=== PATIENT | male | born 1990 | race Caucasian/White ===

== ENCOUNTER 2017-09-13 03:48 | Emergency (ER) | payer SELFPAY ==
[2017-09-13] MEDS ORDERED: Haloperidol INJ IV/IM* 5 MG/ML AMP IM ONE (03:52)
[2017-09-13] MEDS ORDERED: LORazepam INJ* 2 MG/ML 1 ML VIAL IV PUSH ONE (03:52)
--- NOTE | 2017-09-13 04:28 | ED ---
Substance Abuse/Use - HPI Summary HPI Summary: This is erna Ingram documenting for attending Van Price MD. This patient is a 27 year old M brought in by police to [facility] with a chief complaint of substance abuse since early this morning. The police report that the patient was accosting people at [employer]. The patient then charged a border police and was pepper sprayed and tased. The patient told the police that he was tripping balls. The patient reports that he used liquid LSD by applying it to his hands. Symptoms aggravated by nothing. Symptoms alleviated by nothing. LEVEL FIVE CAVEAT DUE TO PATIENT'S ALTERED MENTAL STATUS. - History Of Current Complaint Stated Complaint: OVERDOSE Hx Obtained From: Patient Hx From Patient Unobtainable Due To: Altered Mental Status Onset/Duration of Drug/ETOH Abuse: Hours Ingestion History: Type/Name Of Drug - LSD Overdose Characteristics: Topical Timing Of Abuse: Binge Use Severity Initially: Moderate Severity Currently: Moderate Aggravating Factor(s): Nothing Alleviating Factor(s): Nothing Associated Signs And Symptoms: Hostile, Agitated, Altered Mental Status - Allergies/Home Medications Allergies/Adverse Reactions: Allergies Allergy/AdvReac Type Severity Reaction Status Date / Time Unable to Assess Allergy Verified 09/13/17 03:57 Home Medications: Home Medications Unobtainable 09/13/17 [History Confirmed 09/13/17] PMH/Surg Hx/FS Hx/Imm Hx Respiratory History: Denies: Hx Chronic Obstructive Pulmonary Disease (COPD) Opthamlomology History: Denies: Hx Legally Blind EENT History: Denies: Hx Deafness - Family History Known Family History: Positive: Unknown - Unable to obtain FHx due to altered mental status Review of Systems - ROS Summary Review of Systems Summary: Level 5 caveat due to altered mental status All Other Systems Reviewed And Are Negative: No - Comments Additional Review of Systems Comments: LEVEL FIVE CAVEAT DUE TO ALTERED MENTAL STATUS OF PATIENT. Physical Exam - Summary Physical Exam Summary: Appearance: Well-appearing, Well-nourished, lying in bed comfortable Skin: Warm, dry, no obvious rash Eyes: sclera anicteric, no conjunctival pallor ENT: mucous membranes moist Neck: deferred Respiratory: No signs of respiratory distress Cardiovascular: Appears well perfused, pulses are nml Abdomen: deferred Musculoskeletal: Moving all 4 extremities without obvious discomfort Neurological: Awake and alert, mentation is normal, speech is fluent and appropriate Psychiatric: agitated, delusional, altered mental status Triage Information Reviewed: Yes Vital Signs On Initial Exam: Initial Vitals Resp 26 09/13/17 03:54 Vital Signs Reviewed: Yes Diagnostics - Vital Signs Vital Signs Resp 09/13/17 03:54 26 - Laboratory Lab Statement: Any lab studies that have been ordered have been reviewed, and results considered in the medical decision making process. Course/Dx - Diagnoses Provider Diagnoses: Drug abuse Discharge - Sign-Out/Discharge Documenting (check all that apply): Sign-Out Patient Signing out patient TO: Aubrey Keith Receiving patient FROM: Van Price - Discharge Plan Condition: Stable Disposition: HOME Patient Education Materials: Polysubstance Abuse (ED) Referrals: [facility] [Outside] - 2 Days Additional Instructions: Follow up with your primary care provider in 2-3 days. Return to the emergency department for any new or worsening symptoms. - Billing Disposition and Condition Condition: STABLE Disposition: Home
--- NOTE | 2017-09-13 07:31 | ED ---
Progress - Progress Note Progress Note: This is scribe Adela Apodaca documenting for attending Dr. Aubrey Keith MD. This patient is a sign-out from Dr. Van Price MD, at shift change, pending disposition. He is awake, alert, and orientated x3, and he is able to walk around without difficulty. He is diagnosed with drug abuse. The patient will be discharged home under stable conditions. Patient is agreeable with this plan. A reliable friend will pick pack worker the patient at bedside. Return precautions given. Course/Dx - Diagnoses Provider Diagnoses: Drug abuse Discharge - Sign-Out/Discharge Documenting (check all that apply): Patient Departure - Pt will be discharged home. , Receiving Sign-Out Receiving patient FROM: Van Price - Pt recieved as sign-out during shift change, pending disposition. - Discharge Plan Condition: Stable Disposition: HOME Patient Education Materials: Polysubstance Abuse (ED) Referrals: [facility] [place] [facility] [Outside] - 2 Days Additional Instructions: Follow up with your primary care provider in 2-3 days. Return to the emergency department for any new or worsening symptoms. - Billing Disposition and Condition Condition: STABLE Disposition: Home
[2017-09-13 07:58] VITALS: BP 146/90
== END 2017-09-13 07:57 | disposition home or self-care (01) ==
LOC: EDBD → ED 03:48
DX: F16.10 Hallucinogen abuse, uncomplicated (principal)
CPT/HCPCS: 96372; 96374; 99285